=== PATIENT | male | born 1950 | race African-American/Black ===

== ENCOUNTER 2018-08-10 08:19 | Emergency (ER) | payer OTHER ==
[~2018-08-10] VITALS: Ht 185.4 cm; Wt 59.0 kg
[2018-08-10 08:37] VITALS: BP_SYST 157
[2018-08-10] MEDS ORDERED: LIDOCAINE MPF 1% 50 MG/5 ML AMP INJ ONE (09:30)
[2018-08-10] MEDS ORDERED: HYDROcodone/ACETAMIN 10-325 MG TAB PO ONE (09:30)
[2018-08-10 10:08] LABS: CALCIUM 10.2 mg/dL (8.4-11.0); CREATININE 2.37 mg/dL (0.55-1.30); POTASSIUM 3.6 mmol/L (3.5-5.1)
[2018-08-10 10:09] LABS: ALBUMIN 3.7 g/dL (3.4-4.8); TOTAL BILIRUBIN 0.8 mg/dL (0.0-1.0)
[2018-08-10 10:27] LABS: BASOPHILS % (AUTO) 0.4 % (0.0-2.0); EOSINOPHILS # (AUTO) 0.1 K/uL (0.0-0.4); EOSINOPHILS % (AUTO) 1.7 % (0.0-4.0); HEMATOCRIT 35.8 % (36-54); HEMOGLOBIN 11.4 g/dL (14.0-18.0); LYMPHOCYTES # (AUTO) 1.2 K/uL (1.0-5.5); LYMPHOCYTES % (AUTO) 20.8 % (20.5-51.5); MEAN CORPUSCULAR HEMOGLOBIN 26 pg (27-31); MEAN CORPUSCULAR HGB CONC 32 % (32-36); MEAN CORPUSCULAR VOLUME 81 fL (79.0-98.0); MONOCYTES # (AUTO) 0.5 K/uL (0.0-1.0); MONOCYTES % (AUTO) 8.8 % (1.7-9.3); NEUTROPHILS # (AUTO) 3.8 K/uL (1.8-7.7); NEUTROPHILS % (AUTO) 68.3 % (40.0-70.0); PLATELET COUNT (AUTO) 269 K/uL (130-430); RED BLOOD CELL COUNT(AUTO) 4.45 MIL/uL (4.2-6.2); RED CELL DISTRIBUTION WIDTH 15.1 % (9.0-15.0); WHITE BLOOD COUNT (AUTO) 5.6 K/uL (4.8-10.8)
[2018-08-10 12:55] VITALS: BP_SYST 159
[2018-08-10 15:39] LABS: WBC, BODY FLUID 38 /uL
[2018-08-11 09:27] LABS: BODY FLUID CRYSTALS NO CRYSTALS SEEN (None Seen)
== END 2018-08-10 12:55 | disposition home or self-care (01) ==
LOC: SED 08:19
DX: M25.462 Effusion, left knee (principal); M10.9 Gout, unspecified; I10 Essential (primary) hypertension
CPT/HCPCS: 20610; 36415; 73564; 80053; 82947; 84550; 84560; 85025; 87070; 89051; 89060; 99285; J2001; 82945

== ENCOUNTER 2023-09-19 17:58 | Emergency (ER) | payer OTHER ==
[~2023-09-19] VITALS: Ht 185.4 cm; Wt 90.7 kg
[2023-09-19] MEDS ORDERED: LISI10TA29 PO (18:04)
[2023-09-19 18:07] VITALS: BP_SYST 124; PULSE 96; RESP 16; TEMP 98; O2SAT 100
[2023-09-19 19:28] LABS: BASOPHILS % (AUTO) 0.6 % (0.0-2.0); EOSINOPHILS # (AUTO) 0.1 K/uL (0.0-0.4); EOSINOPHILS % (AUTO) 0.9 % (0.0-4.0); HEMATOCRIT 33.3 % (36-54); HEMOGLOBIN 10.9 g/dL (14.0-18.0); LYMPHOCYTES # (AUTO) 0.7 K/uL (1.0-5.5); LYMPHOCYTES % (AUTO) 9.2 % (20.5-51.5); MEAN CORPUSCULAR HEMOGLOBIN 29 pg (27-31); MEAN CORPUSCULAR HGB CONC 33 % (32-36); MEAN CORPUSCULAR VOLUME 87 fL (79.0-98.0); MONOCYTES # (AUTO) 0.9 K/uL (0.0-1.0); MONOCYTES % (AUTO) 11.8 % (1.7-9.3); NEUTROPHILS # (AUTO) 6.2 K/uL (1.8-7.7); NEUTROPHILS % (AUTO) 77.5 % (40.0-70.0); PLATELET COUNT (AUTO) 183 K/uL (130-430); RED BLOOD CELL COUNT(AUTO) 3.81 MIL/uL (4.2-6.2); RED CELL DISTRIBUTION WIDTH 17.2 % (9.0-15.0); WHITE BLOOD COUNT (AUTO) 8.1 K/uL (4.8-10.8)
[2023-09-19 20:06] LABS: ALANINE AMINOTRANSFERASE 12 U/L (12-78); ALBUMIN 3.6 g/dL (3.4-4.8); ANION GAP 17 (5-15); ASPARTATE AMINOTRANSFERASE 7 U/L (10-37); CALCIUM 9.9 mg/dL (8.4-11.0); CARBON DIOXIDE 19 mmol/L (23-29); CHLORIDE 97 mmol/L (98-107); GLUCOSE 106 mg/dL (74-106); POTASSIUM 4.6 mmol/L (3.5-5.1); SODIUM SERUM 133 mmol/L (136-145); TOTAL PROTEIN, SERUM 8.1 g/dL (6.4-8.3); UREA NITROGEN, BLOOD 96 mg/dL (8-21)
[2023-09-19 20:09] LABS: CREATININE 12.95 mg/dL (0.55-1.30)
[2023-09-19] MEDS ORDERED: CLIN-22 PO (20:17)
[2023-09-19] MEDS ORDERED: DIPH25CA83 PO (20:17)
[2023-09-19] MEDS ORDERED: CLINDAMYCIN HCL 150 MG CAPSULE PO ONE (20:30)
[2023-09-19] MEDS ORDERED: DIPHENHYDRAMINE HCL 12.5 MG/5 ML UDC PO ONE (20:30)
[2023-09-19 20:31] VITALS: BP_SYST 167; PULSE 113; RESP 18; TEMP 99.4; O2SAT 96
== END 2023-09-19 20:31 | disposition home or self-care (01) ==
LOC: SED 17:58
DX: S00.261A Insect bite (nonvenomous) of right eyelid and periocular area, initial encounter (principal); I10 Essential (primary) hypertension; Z79.899 Other long term (current) drug therapy; W57.XXXA Bitten or stung by nonvenomous insect and other nonvenomous arthropods, initial encounter; Y93.89 Activity, other specified; Y92.89 Other specified places as the place of occurrence of the external cause; Y99.8 Other external cause status
CPT/HCPCS: 36415; 80053; 83605; 85025; 99282